=== PATIENT | male | born 1990 | race Caucasian/White ===

== ENCOUNTER 2020-05-28 12:54 | Emergency (ER) | payer OTHER ==
[~2020-05-28] VITALS: Ht 160 cm; Wt 56.7 kg
[2020-05-28] MEDS ORDERED: TRUVADA1 EAC1 PO (13:23)
[2020-05-28] MEDS ORDERED: DEPO-TESTO200 MG/1 M IM (13:24)
[2020-05-28] MEDS ORDERED: NAPROSYN500 MG PO (16:33)
[2020-05-28 16:47] VITALS: BP 134/74
== END 2020-05-28 16:47 | disposition home or self-care (01) ==
LOC: ER 12:54
DX: S79.811A Other specified injuries of right hip, initial encounter (principal); M25.511 Pain in right shoulder; Z87.891 Personal history of nicotine dependence; Z79.899 Other long term (current) drug therapy; W17.89XA Other fall from one level to another, initial encounter; Y93.51 Activity, roller skating (inline) and skateboarding; Y92.331 Roller skating rink as the place of occurrence of the external cause; Y99.9 Unspecified external cause status